=== PATIENT | male | born 2000 | race Caucasian/White ===

== ENCOUNTER 2022-08-26 04:25 | Emergency (ER) | payer OTHER ==
[~2022-08-26] VITALS: Ht 170.2 cm; Wt 90.7 kg
[2022-08-26 04:25] VITALS: BP 126/71
--- NOTE | 2022-08-26 04:25 | NUR ---
PT FISH ALS. TAKEN TO BED 11
[2022-08-26] MEDS ORDERED: NACL 0.9% 1,000 ML IV ONE (04:30)
--- NOTE | 2022-08-26 05:18 | NUR ---
BLOOD DRAWN AND SENT TO LAB
[2022-08-26 05:28] LABS: BASOPHILS % (AUTO) 0.1 % (0.0-2.0); EOSINOPHILS % (AUTO) 0.1 % (0.0-4.0); HEMATOCRIT 41.5 % (36-52); HEMOGLOBIN 13.7 g/dL (12.0-18.0); LYMPHOCYTES % (AUTO) 4.2 % (20.5-51.1); MEAN CORPUSCULAR HEMOGLOBIN 28 pg (27-31); MEAN CORPUSCULAR HGB CONC 33 g/dL (33-37); MONOCYTES % (AUTO) 4.4 % (1.7-9.3); NEUTROPHILS % (AUTO) 91.2 % (42.2-75.2); PLATELET COUNT (AUTO) 214 K/uL (140-450); RED BLOOD CELL COUNT(AUTO) 4.88 MIL/uL (4.20-6.10); RED CELL DISTRIBUTION WIDTH 13.5 % (11.6-13.7)
[2022-08-26 05:49] LABS: ALBUMIN 3.8 g/dL (3.4-5.0); ANION GAP 18.2 (8-16); ASPARTATE AMINOTRANSFERASE 24 U/L (15-37); CARBON DIOXIDE 26.4 mmol/L (21-32); CHLORIDE 101 mmol/L (98-107); CREATININE 1.2 mg/dL (0.6-1.3); GFR ARICAN-AMERICAN 99 mL/min (>90); GLUCOSE 234 mg/dL (74-106); POTASSIUM 3.6 mmol/L (3.5-5.1); SODIUM SERUM 142 mmol/L (136-145); TOTAL BILIRUBIN 0.3 mg/dL (0.0-1.0); UREA NITROGEN, BLOOD 11 mg/dL (7-18)
[2022-08-26 05:50] LABS: ACETAMINOPHEN < 0.5 ug/ml (10-30); SALICYLATE < 2.8 mg/dL (2.8-20.0)
[2022-08-26] MEDS ORDERED: NALO4SPR NS (07:24)
[2022-08-26 07:57] VITALS: BP 127/80
--- NOTE | 2022-08-26 07:58 | NUR ---
Patient discharged with v/s stable. Written and verbal after care instructions given and explained. Patient alert, oriented and verbalized understanding of instructions. Ambulatory with steady gait. All questions addressed prior to discharge. ID band removed. Patient advised to follow up with PMD. Rx of NARCAN given. Patient educated on indication of medication including possible reaction and side effects. Opportunity to ask questions provided and answered.
== END 2022-08-26 07:58 | disposition home or self-care (01) ==
LOC: MED 04:25
DX: Z00.00 Encounter for general adult medical examination without abnormal findings (principal); T40.2X1A Poisoning by other opioids, accidental (unintentional), initial encounter; Y92.89 Other specified places as the place of occurrence of the external cause
CPT/HCPCS: 71045; 80053; 85025; 93005; 96360; 99285; G0480; G0482; Q0092; J7030